=== PATIENT | male | born 1995 | race Caucasian/White ===

== ENCOUNTER 2017-04-25 23:05 | Emergency (ER) | payer OTHER, MEDICAID, BC ==
[2017-04-25] MEDS ORDERED: Bacitracin/Neomycin/Polymyxin B Oint 0.9 GM U/D Packet TOP ONE (23:32)
--- NOTE | 2017-04-25 23:44 | EDM.PDOC ---
ED HPI GENERAL MEDICAL PROBLEM - General Chief Complaint: Head Injury Stated Complaint: dizzy, lightheaded , s/p concussion Time Seen by Provider: 04/25/17 23:24 Source of Information: Reports: Patient History Limitations: Reports: No Limitations - History of Present Illness INITIAL COMMENTS - FREE TEXT/NARRATIVE: PT STATES HE ACCIDENTALLY STRUCK HEAD ON FLOOR YESTERDAY MORNING. PRESENTED TO ANOTHER ER AND WAS SEEN AND TREATED. ASYMPTOMATIC UNTIL HE DEVELOPED NOSE BLEED ONE HOUR AGO AND BECAME CONCERNED THAT IT MAY BE RELATED. NOSE BLEED SPONTANEOUSLY RESOLVED PRIOR TO ARRIVAL. DENIES TRAUMA TO FACE. OR ANY OTHER INJURY. Onset: Today Duration: Hour(s): Location: Reports: Head Severity: Mild Improves with: Reports: None Worsens with: Reports: None Associated Symptoms: Reports: No Other Symptoms ED ROS GENERAL - Review of Systems Review Of Systems: ROS reveals no pertinent complaints other than HPI. Constitutional: Reports: No Symptoms HEENT: Reports: Nosebleed Respiratory: Reports: No Symptoms Cardiovascular: Reports: No Symptoms Endocrine: Reports: No Symptoms GI/Abdominal: Reports: No Symptoms : Reports: No Symptoms Musculoskeletal: Reports: No Symptoms Skin: Reports: No Symptoms Neurological: Reports: No Symptoms Psychiatric: Reports: No Symptoms Hematologic/Lymphatic: Reports: No Symptoms Immunologic: Reports: No Symptoms ED EXAM, HEAD INJURY - Physical Exam Exam: See Below Exam Limited By: No Limitations General Appearance: Alert, WD/WN, No Apparent Distress Head: Atraumatic, Normocephalic. 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 NO EPISTAXIS WHILE IN ER. NEOSPORIN APPLIED TO NARES. 04/25/17 23:45 Departure - Departure Time of Disposition: 23:46 Disposition: Home, Self-Care 01 Condition: good Clinical Impression: Concussion with no loss of consciousness, Mild epistaxis - Discharge Information Instructions: Post-Concussion Syndrome, [id number], Nosebleed, [id number] Forms: ED Department Discharge Additional Instructions: FOLLOW UP WITH YOUR PRIMARY DOCTOR IN NEXT 2-3 DAYS - My Orders Last 24 Hours: My Active Orders 04/25/17 23:32 Bacitracin/Neomycin/Polymyxin [Triple Antibiotic Oint] 1 each TOP ONETIME ONE - Assessment/Plan Last 24 Hours: My Active Orders 04/25/17 23:32 Bacitracin/Neomycin/Polymyxin [Triple Antibiotic Oint] 1 each TOP ONETIME ONE Assessment:: EPISTAXIS Plan: F/U WITH PCP
[2017-04-26 00:20] VITALS: BP 126/87
== END 2017-04-25 23:50 | disposition home or self-care (01) ==
LOC: KA.ED 23:05
DX: S06.0X0A Concussion without loss of consciousness, initial encounter (principal); R04.0 Epistaxis; W22.8XXA Striking against or struck by other objects, initial encounter
CPT/HCPCS: 99283